=== PATIENT | male | born 1950 | race Caucasian/White ===

== ENCOUNTER 2016-08-30 02:54 | Emergency (ER) | payer BC ==
[~2016-08-30] VITALS: Ht 177.8 cm; Wt 102.0 kg
[2016-08-30 02:54] VITALS: Ht 177.8 cm; Wt 102.0 kg
[~2016-08-30 02:54] MED LIST: GLIP5TAB11 PO; PHEN-412 PO; PIOG45TA PO
--- OUTSIDE RECORDS SUMMARY | 2016-08-30 02:58 | XMS REPORT ---
Author Author Scottie Ramsey eClinicalWorks Address Unknown Phone Unavailable Care Team Providers Care Vertical Lathe Operator Name Role Phone Scottie Ramsey CP Unavailable Allergies, Adverse Reactions, Alerts Substance Reaction Event Type N.K.D.A. Info Not Available Non Drug Allergy Problems Problem Type Condition Code Onset Dates Condition Status Assessment Obesity, unspecified E66.9 Active Problem DM w/o complication type II E11.9 Active Problem Gout M10.9 Active Problem Pure hypercholesterolemia E78.0 Active Problem Nocturia R35.1 Active Problem Essential (primary) hypertension I10 Active Problem Encounter for long-term (current) use of other medications Z79.899 Active Problem Obesity, unspecified E66.9 Active Medications Medication Code System Code Instructions Start Date End Date Status Dosage Actos [facility] [address]-94 dose unknown Orally Once a day 1 tablet Phentermine HCl [facility] [address]-55 37.5 MG Orally Once a day Feb 04, 2016 1 tablet Procedures Procedure Coding System Code Date OFFICE VISITEST PT CPT-4 93378 Apr 04, 2016 Vital Signs Date/Time: Apr 04, 2016 Blood Pressure Systolic 149 mm Hg Height 70 in Weight 222.6 lbs BMI 31.94 Index Oximetry 100 % Cardiac Monitoring Heart Rate 69 /min Blood Pressure Diastolic 76 mm Hg Results No Known Results Summary Purpose eClinicalWorks Submission
--- OUTSIDE RECORDS SUMMARY | 2016-08-30 02:58 | XMS REPORT ---
Author Author Scottie Ramsey eClinicalWorks Address Unknown Phone Unavailable Care Team Providers Care Night Supervisor Name Role Phone Scottie Ramsey CP Unavailable Allergies No Known Allergies Problems Problem Type Condition ICD-9 Code Onset Dates Condition Status Problem Diabetes mellitus without mention of complication, type II or unspecified type, not stated as uncontrolled 250.00 Active Problem Gout, unspecified 274.9 Active Problem Hypercholesterolemia 272.0 Active Problem Hypertension, Unspecified 401.9 Active Problem Nocturia 788.43 Active Problem Encounter for long-term (current) use of other medications V58.69 Active Problem Obesity, unspecified 278.00 Active Medications Medication Code System Code Instructions Start Date End Date Status Dosage Actos [facility] [address]-84 45 MG Orally Once a day May 16, 2011 Active 1 tablet Crestor [facility] [address]-18 10 MG Orally Once a day May 16, 2011 Active 1 tablet GlipiZIDE [facility] [address]-69 5 MG Orally Once a day May 16, 2011 Active 1 tablet Results No Known Results Summary Purpose eClinicalWorks Submission
--- OUTSIDE RECORDS SUMMARY | 2016-08-30 02:58 | XMS REPORT ---
Author Author Scottie Ramsey [facility] eClinicalWorks Address Unknown Phone Unavailable Care Team Providers Care Certified Nuclear Medicine Technologist Name Role Phone Scottie Ramsey CP Unavailable Allergies No Known Allergies Problems Problem Type Condition Code Onset Dates Condition Status Problem DM w/o complication type II E11.9 Active Problem Gout M10.9 Active Problem Pure hypercholesterolemia E78.0 Active Problem Nocturia R35.1 Active Problem Essential (primary) hypertension I10 Active Problem Encounter for long-term (current) use of other medications Z79.899 Active Problem Obesity, unspecified E66.9 Active Medications No Known Medications Results No Known Results Summary Purpose eClinicalWorks Submission
--- OUTSIDE RECORDS SUMMARY | 2016-08-30 02:58 | XMS REPORT ---
Author Scottie Lopez eClinicalWorks Address Unknown Phone Unavailable Care Team Providers Care Equine Dentist Name Role Phone Scottie Ramsey CP Unavailable Allergies, Adverse Reactions, Alerts Substance Reaction Event Type N.K.D.A. Info Not Available Non Drug Allergy Problems Problem Type Condition ICD-9 Code Onset Dates Condition Status Assessment Hypercholesterolemia 272.0 Active Assessment Adult Wellness Exam V70.0 Active Assessment Diabetes mellitus without mention of complication, type II or unspecified type, not stated as uncontrolled 250.00 Active Problem Diabetes mellitus without mention of complication, type II or unspecified type, not stated as uncontrolled 250.00 Active Problem Gout, unspecified 274.9 Active Problem Hypercholesterolemia 272.0 Active Problem Hypertension, Unspecified 401.9 Active Problem Nocturia 788.43 Active Problem Encounter for long-term (current) use of other medications V58.69 Active Problem Obesity, unspecified 278.00 Active Assessment Obesity, unspecified 278.00 Active Assessment Gout, unspecified 274.9 Active Assessment Preop cardiovascular exam V72.81 Active Assessment Nocturia 788.43 Active Assessment Obesity 278.00 Active Assessment Hypertension, Unspecified 401.9 Active Medications Medication Code System Code Instructions Start Date End Date Status Dosage GlipiZIDE [facility] [address]-97 5 MG Orally Once a day May 16, 2011 Active 1 tablet Lipitor [facility] [address]-16 20 mg Orally Once a day Jun 12, 2014 Active 1 tablet Phentermine HCl [facility] [address]-04 37.5 MG Orally Once a day Jun 12, 2014 Active 1 tablet Crestor [facility] [address]-55 10 MG Orally Once a day May 16, 2011 Inactive 1 tablet Actos [facility] [address]-58 45 MG Orally Once a day May 16, 2011 Active 1 tablet Invokana [facility] [address]-89 300 MG Orally Once a day Jun 12, 2014 Active 1 tablet Procedures Procedure Coding System Code Date COMP PROFILE CPT-4 93062 Jun 12, 2014 LIPID PROFILE CPT-4 26723 Jun 12, 2014 CBC CPT-4 07979 Jun 12, 2014 PREV MED SEREST 40 CPT-4 68517 Jun 12, 2014 CREATININE; OTHER SOURCE CPT-4 72777 Jun 12, 2014 URINALYSIS CPT-4 51338 Jun 12, 2014 PSA,TOTAL CPT-4 71464 Jun 12, 2014 MICROALBUMIN URINE CPT-4 47574 Jun 12, 2014 HgB A1C CPT-4 69816 Jun 12, 2014 Vital Signs Date/Time: Jun 12, 2014 Blood Pressure Systolic 151 mm Hg Height 70 in Weight 314.3 lbs BMI 45.09 Index Blood Pressure Diastolic 78 mm Hg Results No Known Results Summary Purpose eClinicalWorks Submission
--- OUTSIDE RECORDS SUMMARY | 2016-08-30 02:58 | XMS REPORT ---
Author Author Scottie Ramsey [facility] eClinicalWorks Address Unknown Phone Unavailable Care Team Providers Care Industrial Spraypainter Name Role Phone Scottie Ramsey CP Unavailable [...] Start Date End Date Status Dosage Actos [facility] [address]-03 45 MG Orally Once a day May 16, 2011 1 tablet Results No Known Results Summary Purpose eClinicalWorks Submission
--- OUTSIDE RECORDS SUMMARY | 2016-08-30 02:58 | XMS REPORT ---
Author Author Scottie Ramsey [facility] eClinicalWorks Address Unknown Phone Unavailable Care Team Providers Care Kitchen Chef Name Role Phone Scottie Ramsey CP Unavailable [...] Start Date End Date Status Dosage Actos [facility] [address]-28 45 MG Orally Once a day May 16, 2011 1 tablet GlipiZIDE [facility] [address]-28 5 MG Orally Once a day May 16, 2011 1 tablet Results No Known Results Summary Purpose eClinicalWorks Submission
--- OUTSIDE RECORDS SUMMARY | 2016-08-30 02:58 | XMS REPORT | Continuity of Care Document ---
Author Author [facility] Address Unknown Phone Unavailable Care Team Providers Care Correction Officer Supervisor Name Role Phone Jeremy Ramsey Primary Care Physician [phone] Insurance Providers Payer Name Policy Number Subscriber Name Relationship [facility] [id number] Bo Faith 20 Self / Same As Patient Advance Directives Directive Response Recorded Date/Time Advanced Directives No 10/28/15 6:56am Problems Active Problems Medical Problem Onset Date Status Cataract Unknown Acute Medications Current Home Medications Medication Dose Units Route Directions Days/Qty Instructions Start Date Pioglitazone Hcl 15 Mg 15 Mg ORAL Daily 10/27/15 Glipizide (Glucotrol) 5 Mg 5 Mg ORAL Twice Daily After Meals Social History Social History Problem Response Recorded Date/Time Onset Date Status Occupation or Former Occupation [employer] 10/28/2015 7:04am Query Response Start Date Stop Date Smoking Status Never smoker Hospital Discharge Instructions No hospital discharge instructions. Plan of Care Discharge Date 10/28/15 9:55am Prescriptions See Medication Section Functional Status No functional status results. Allergies, Adverse Reactions, Alerts No known allergies. Immunizations No immunization records. Vital Signs Acute Vital Signs Vital Response Date/Time Temperature (Fahrenheit) 97.2 10/28/2015 9:22am Pulse 68 bpm 10/28/2015 9:22am Respirations 18 10/28/2015 9:22am Height 5 ft 10 in Weight 283 lb Body Mass Index 40.0 kg/m^2 Results No known relevant diagnostic tests, laboratory data and/or discharge summary. Procedures No known history of procedures. Encounters Encounter Location Arrival/Admit Date Discharge/Depart Date Attending Provider Departed [facility] 10/28/15 7:02am 10/28/15 9: 55am ARUNA FIGUEROA MD Recent Diagnosis Cataract
--- OUTSIDE RECORDS SUMMARY | 2016-08-30 02:58 | XMS REPORT ---
Author Author Scottie Ramsey eClinicalWorks Address Unknown Phone Unavailable Care Team Providers Care Golf Cart Attendant Name Role Phone Scottie Ramsey CP Unavailable [...] Instructions Start Date End Date Status Dosage Phentermine HCl [facility] [address]-60 37.5 MG Orally Once a day Feb 04, 2016 [address] [facility] [address]-42 dose unknown Orally Once a day 1 tablet Procedures Procedure Coding System Code Date OFFICE VISITEST PT CPT-4 13067 Mar 02, 2016 Vital Signs Date/Time: Mar 02, 2016 Blood Pressure Systolic 138 mm Hg Height 70 in Weight 228.2 lbs BMI 32.74 Index Oximetry 100 % Cardiac Monitoring Heart Rate 67 /min Blood Pressure Diastolic 69 mm Hg Results No Known Results Summary Purpose eClinicalWorks Submission
--- OUTSIDE RECORDS SUMMARY | 2016-08-30 02:58 | XMS REPORT ---
Author Author Scottie Ramsey [facility] eClinicalWorks Address Unknown Phone Unavailable Care Team Providers Care Parts Counter Clerk Name Role Phone Scottie Ramsey CP Unavailable [...] Start Date End Date Status Dosage GlipiZIDE [facility] [address]-11 5 MG Orally Once a day May 16, 2011 1 tablet Results No Known Results Summary Purpose eClinicalWorks Submission
--- OUTSIDE RECORDS SUMMARY | 2016-08-30 02:58 | XMS REPORT | Continuity of Care Document ---
Author Author [facility] Address Unknown Phone Unavailable Allergies Active Description Code Type Severity Reaction Onset Reported/Identified Relationship to Patient Clinical Status Yes No Known Drug Allergies [id number] Drug Allergy Unknown N/ A 10/27/2015 Medications Problems Date Dx Coded Attending Type Code Diagnosis Diagnosed By 12/14/2011 Ot V43.65 KNEE JOINT REPLACEMENT STATUS 12/14/2011 Ot V54.81 AFTERCARE FOLLOWING JOINT REPLACEMENT 12/14/2011 Ot V57.1 PHYSICAL THERAPY NEC 10/28/2015 HENRY KOEHLER, ARUNA V Ot E11.9 TYPE 2 DIABETES MELLITUS WITHOUT COMPLIC 10/28/2015 HENRY KOEHLER, ARUNA V Ot E78.5 HYPERLIPIDEMIA, UNSPECIFIED 10/28/2015 HENRY KOEHLER, ARUNA V Ot H26.9 UNSPECIFIED CATARACT 10/28/2015 HENRY KOEHLER, ARUNA V Ot H53.8 OTHER VISUAL DISTURBANCES 11/03/2015 HENRY KOEHLER, ARUNA V Ot E11.9 TYPE 2 DIABETES MELLITUS WITHOUT COMPLIC 11/03/2015 HENRY KOEHLER, ARUNA V Ot E78.5 HYPERLIPIDEMIA, UNSPECIFIED 11/03/2015 HENRY KOEHLER, ARUNA V Ot H26.9 UNSPECIFIED CATARACT 11/03/2015 HENRY KOEHLER, ARUNA V Ot H53.8 OTHER VISUAL DISTURBANCES Procedures Results Encounters ACCT No. Visit Date/Time Discharge Status Pt. Type Provider Facility Loc./Unit Complaint [id number] 10/28/2015 07:02:00 2015 09:55:00 DIS Outpatient HENRY KOEHLER, [facility] [id number] 10/28/2015 08:15:00 2015 08:15:00 CAN Preadmit HENRY KOEHLER, [facility] [id number] 11/08/2011 13:45:00 Document Registration
--- OUTSIDE RECORDS SUMMARY | 2016-08-30 02:58 | XMS REPORT ---
Author Author Scottie Ramsey eClinicalWorks Address Unknown Phone Unavailable Care Team Providers Care Nsh Teacher Name Role Phone Scottie Ramsey CP Unavailable [...] Start Date End Date Status Dosage GlipiZIDE [facility] [address]-36 5 MG Orally Once a day May 16, 2011 1 tablet Results No Known Results Summary Purpose eClinicalWorks Submission
--- OUTSIDE RECORDS SUMMARY | 2016-08-30 02:59 | XMS REPORT ---
Author Author Scottie Ramsey eClinicalWorks Address Unknown Phone Unavailable Care Team Providers Care Water Resources Program Director Name Role Phone Scottie Ramsey CP Unavailable [...] Date End Date Status Dosage Phentermine HCl [facility] [address]-84 37.5 MG Orally Once a day Feb 04, 2016 1 tablet Procedures Procedure Coding System Code Date OFFICE VISITEST PT CPT-4 29356 Feb 04, 2016 Results No Known Results Summary Purpose eClinicalWorks Submission
--- OUTSIDE RECORDS SUMMARY | 2016-08-30 02:59 | XMS REPORT ---
Author Author Scottie Ramsey [facility] eClinicalWorks Address Unknown Phone Unavailable Care Team Providers Care Oil Refinery Process Technician Name Role Phone Scottie Ramsey CP Unavailable [...] Active Problem Obesity, unspecified 278.00 Active Medications No Known Medications Results No Known Results Summary Purpose [facility]
--- OUTSIDE RECORDS SUMMARY | 2016-08-30 02:59 | XMS REPORT ---
Author Author Scottie Ramsey eClinicalWorks Address Unknown Phone Unavailable Care Team Providers Care Financial Services Officer Name Role Phone Scottie Ramsey CP Unavailable Allergies, Adverse Reactions, Alerts Substance Reaction Event Type N.K.D.A. Info Not Available Non Drug Allergy Problems Problem Type Condition Code Onset Dates Condition Status Assessment Obesity E66.9 Active Problem DM w/o complication type II E11.9 Active Problem Gout M10.9 Active Problem Pure hypercholesterolemia E78.0 Active Problem Nocturia R35.1 Active Problem Essential (primary) hypertension I10 Active Problem Encounter for long-term (current) use of other medications Z79.899 Active Problem Obesity, unspecified E66.9 Active Medications Medication Code System Code Instructions Start Date End Date Status Dosage Accu-Chek FastClix Lancets NDC 0 USE Type 2 uncontrolled on oral meds 250.02 4 TIMES A DAY 2 DAYS A WEEK Jul 13, 2014 test blood sugar Accu-Chek SmartView [facility] [address]-49 USE Type 2 uncontrolled on oral meds 250.02 4 TIMES A DAY 2 DAYS A WEEK October 12, 2014 test blood sugar Actos [facility] 24118941746 45 MG TAKE 1 TABLET BY MOUTH ONCE DAILY Phentermine HCl [facility] [address]-86 37.5 MG Orally Once a day September 20, [address] [facility] 48199074253 5 MG TAKE 1 TABLET BY MOUTH ONCE A DAY Procedures Procedure Coding System Code Date OFFICE VISITEST PT CPT-4 00616 December 01, 2015 Vital Signs Date/Time: December 01, 2015 Blood Pressure Systolic 124 mm Hg Height 70 in Weight 266.8 lbs BMI 38.28 Index Blood Pressure Diastolic 72 mm Hg Results No Known Results Summary Purpose eClinicalWorks Submission
--- OUTSIDE RECORDS SUMMARY | 2016-08-30 02:59 | XMS REPORT | Summary of Care ---
Author Author Randell Zamora Organization Unknown Address [address], [place] [id number] Phone Unavailable Care Team Providers Care Soil Field Technician Name Role Phone Unavailable Unavailable Functional Status Functional Status Health Issues* Name Dates Details Functional status health issues are not documented Status: Cognitive Status Health Issues* Name Dates Details Cognitive status health issues are not documented Status: Problems Name Dates Details Orthopedic aftercare for joint replacement (V54.81, Z47.1) Status: Active S/P knee replacement (V43.65, Z96.659) Status: Active Medications Name Dates Details Medication not documented Allergies and Adverse Reactions Name Dates Details No Known Drug Allergies Status: Active Procedures Procedure Dates Details History of Reported Hx Of Knee Replacement - Right Procedures not documented Immunization Name Dates Details Immunizations not documented Social History Smoking Status* Unknown if ever smoked Vital Signs Date Test Result Details No Known Vitals to report Results Date Description Value Details Results not documented Plan of Care Planned Observations* Name Dates Details Planned Goals not documented Goal Planned Encounters* Appointment; Provider: Darius Leiva On 25-Oct-2011 10:00 Instructions * Instructions not documented Encounters Appointment; Darius Leiva Encounter Diagnosis: Problem not documented On 20-Jan-2014 09:30 Appointment; Darius Leiva Encounter Diagnosis: Problem not documented On 21-Jan-2013 09:30
--- OUTSIDE RECORDS SUMMARY | 2016-08-30 02:59 | XMS REPORT ---
Author Author Scottie Ramsye [facility] eClinicalWorks Address Unknown Phone Unavailable Care Team Providers Care Wastewater Design Engineer Name Role Phone Scottie Ramsey CP Unavailable [...] Medications Results No Known Results Summary Purpose [facility] Submission
--- OUTSIDE RECORDS SUMMARY | 2016-08-30 02:59 | XMS REPORT ---
Author Author Scottie Ramsey eClinicalWorks Address Unknown Phone Unavailable Care Team Providers Care Solar Crew Member Name Role Phone Scottie Ramsey CP Unavailable [...] Start Date End Date Status Dosage Actos [facility] [address]-25 45 MG Orally Once a day May 16, 2011 1 tablet GlipiZIDE [facility] [address]-15 5 MG Orally Once a day May 16, 2011 1 tablet Results No Known Results Summary Purpose eClinicalWorks Submission
--- OUTSIDE RECORDS SUMMARY | 2016-08-30 02:59 | XMS REPORT ---
Author Author Scottie Ramsey eClinicalWorks Address Unknown Phone Unavailable Care Team Providers Care Laundry Attendant Name Role Phone Scottie Ramsey CP Unavailable Allergies, Adverse Reactions, Alerts Substance Reaction Event Type N.K.D.A. Info Not Available Non Drug Allergy Problems Problem Type Condition Code Onset Dates Condition Status Assessment Obesity, unspecified E66.9 Active Assessment DM w/o complication type II E11.9 Active Problem DM w/o complication type II E11.9 Active Problem Gout M10.9 Active Problem Pure hypercholesterolemia E78.0 Active Problem Nocturia R35.1 Active Problem Essential (primary) hypertension I10 Active Problem Encounter for long-term (current) use of other medications Z79.899 Active Problem Obesity, unspecified E66.9 Active Medications Medication Code System Code Instructions Start Date End Date Status Dosage Accu-Chek SmartView [facility] 2[facility] [address]-79 USE Type 2 uncontrolled on oral meds 250.02 4 TIMES A DAY 2 DAYS A WEEK October 12, 2014 test blood sugar Actos [facility][NOTE 2] 43053106011 45 MG TAKE 1 TABLET BY MOUTH ONCE DAILY Accu-Chek FastClix Lancets NDC 0 USE Type 2 uncontrolled on oral meds 250.02 4 TIMES A DAY 2 DAYS A WEEK Jul 13, 2014 test blood sugar Phentermine HCl [facility][NOTE 2] [address]-37 37.5 MG Orally Once a day September 20, 2015 1 tablet Procedures Procedure Coding System Code Date OFFICE VISITEST PT CPT-4 36925 Jan 04, 2016 Vital Signs Date/Time: Jan 04, 2016 Blood Pressure Systolic 118 mm Hg Height 70 in Weight 252.7 lbs BMI 36.25 Index Blood Pressure Diastolic 74 mm Hg Results No Known Results Summary Purpose eClinicalWorks Submission
--- OUTSIDE RECORDS SUMMARY | 2016-08-30 02:59 | XMS REPORT ---
Author Author Darius Leiva Organization Unknown Address [address], [place] [id number] Phone Care Team Providers Care Career Information Specialist Name Role Phone Cali Mabel PP Unavailable Reason for Referral No Reason for Referral was given. Chief Complaint [facility] Text Box CC: [facility] ortho cc: Reason for Visit: Right knee surgery follow up. Date of Surgery: 10/25/2011 r tka History of Present Illness [facility] Ortho HPI: He describes the pain as dull. Patient denies numbness. He rates the severity of the pain at a 1 on a pain scale of 1-10. The patient states that this injury is not accident related. The patient states that this injury was not work related. [facility] Text Box HPI: Problems * Normal Routine History And Physical Adult (V70.0); (Active) Medication * No Active Medications Allergies and Adverse Reactions * No Known Drug Allergies (Active) Past Medical History * No Significant Medical History Procedures Procedure Procedure Date Date Completed Status Reported Hx Of Knee Replacement - Right - - Active Treatment Plan * ORTHO KNEE RIGHT 07/25/2011 Routine * ORTHO KNEE RIGHT (3 VIEWS ONLY) 11/09/2011 Routine * ORTHO KNEE RIGHT (3 VIEWS ONLY) 01/23/2012 Routine * ORTHO KNEE RIGHT (3 VIEWS ONLY) 01/21/2013 Routine Advance Directives * No Advance Directives available. Encounters * Appointment 01/21/2013 * YEARLY , Provider: Cali Mccoy, Status: Lai , Time: 9:30 AM 2013
--- OUTSIDE RECORDS SUMMARY | 2016-08-30 02:59 | XMS REPORT ---
Author Scottie Lopez [facility] eClinicalWorks Address Unknown Phone Unavailable Care Team Providers Care Heater Mechanic Name Role Phone Scottie Ramsey Unavailable Allergies, Adverse Reactions, Alerts Substance Reaction Event Type N.K.D.A. Info Not Available Non Drug Allergy Problems Problem Type Condition Code Onset Dates Condition Status Assessment DM w/o complication type II E11.9 Active Assessment Encounter for general adult medical examination without abnormal findings Z00.00 Active Assessment Pure hypercholesterolemia E78.0 Active Problem DM w/o complication type II E11.9 Active Problem Gout M10.9 Active Problem Pure hypercholesterolemia E78.0 Active Problem Nocturia R35.1 Active Problem Essential (primary) hypertension I10 Active Problem Encounter for long-term (current) use of other medications Z79.899 Active Problem Obesity, unspecified E66.9 Active Assessment Essential (primary) hypertension I10 Active Assessment Obesity, unspecified E66.9 Active Assessment Nocturia R35.1 Active Assessment Gout M10.9 Active Medications Medication Code System Code Instructions Start Date End Date Status Dosage Accu-Chek SmartView [facility] [address]-65 USE Type 2 uncontrolled on oral meds 250.02 4 TIMES A DAY 2 DAYS A WEEK October 12, 2014 test blood sugar Actos [facility] [address]-87 45 MG Orally Once a day May 16, 2011 1 tablet Phentermine HCl [facility] [address]-53 37.5 MG Orally Once a day September 20, 2015 1 tablet Accu-Chek FastClix Lancets NDC 0 USE Type 2 uncontrolled on oral meds 250.02 4 TIMES A DAY 2 DAYS A WEEK Jul 13, 2014 test blood sugar GlipiZIDE [facility] [address]-58 5 MG Orally Once a day May 16, 2011 1 tablet Procedures Procedure Coding System Code Date COMP PROFILE CPT-4 97476 September 20, 2015 LIPID PROFILE CPT-4 14776 September 20, 2015 CBC CPT-4 42046 September 20, 2015 CREATININE; OTHER SOURCE CPT-4 23198 September 20, 2015 MICROALBUMIN URINE CPT-4 77982 September 20, 2015 URINALYSIS CPT-4 73772 September 20, 2015 PSA,TOTAL CPT-4 85967 September 20, 2015 HgB A1C CPT-4 24038 September 20, 2015 PREV MED SEREST 40 CPT-4 80151 September 20, 2015 Vital Signs Date/Time: September 20, 2015 Blood Pressure Systolic 146 mm Hg Height 70 in Weight 305.8 lbs BMI 43.87 Index Oximetry 96 % Cardiac Monitoring Heart Rate 70 /min Blood Pressure Diastolic 77 mm Hg Results No Known Results Summary Purpose eClinicalWorks Submission
--- OUTSIDE RECORDS SUMMARY | 2016-08-30 02:59 | XMS REPORT | Continuity of Care Document ---
Author Author [facility] Organization [facility] Address Unknown Phone Unavailable Support Name Relationship Address Phone ANGIE LIM Caregiver [address] [facility] [address] [place] [address] Unavailable KARTIK RAY FACS, MD Caregiver [address] [place] [address] [place] [address] Unavailable TRISTAN ANGELE Next Of Kin Unknown [phone] Insurance Providers Guarantor Bo Faith Address [address] [place] [address] Email DENIED PT PORTAL Payer [facility] Policy Number [id number] Subscriber's Name Bo Faith Relationship 18 Self Group Number [id number] Advance Directives Directive Response Recorded Date/Time Dr Flores Resuscitation Status Full Code 11/10/15 1:40pm Resuscitation Documents on File No 11/12/15 6:34am DPOA for Healthcare Only No 11/12/15 6:34am Problems No problem information available. Medications Current Home Medications Medication Dose Units Route Directions Days Qty Instructions Start Date Glipizide 5 Mg Tablet 1 Tab Oral Daily 11/10/15 Phentermine Hcl 37.5 Mg Capsule 1 Cap Oral Every Morning 30 Capsule 11/11/15 Pioglitazone Hcl (Actos) 45 Mg Tablet 1 Tab Oral Daily 11/10/15 Social History Social History Problem Response Recorded Date/Time Onset Date Status Chewing Tobacco Status No 11/12/2015 6:38am Not Applicable Not Applicable Hx Substance Use No 11/12/2015 6:38am Not Applicable Not Applicable Hx Alcohol Use No 11/12/2015 6:38am Not Applicable Not Applicable Query Response Start Date Stop Date Smoking Status Never smoker Hospital Discharge Instructions No hospital discharge instructions. Plan of Care Discharge Date 11/12/15 9:20am Prescriptions See Medication Section Functional Status Query Response Date Recorded Ability to complete ADL's impeded by No change November 12, 2015 6:34am Allergies, Adverse Reactions, Alerts No known allergies. Immunizations Query Response on File Recorded Date/Time Hx Influenza Vaccination No 11/12/15 6:38am Hx Pneumococcal Vaccination No 11/12/15 6:38am Hx Influenza Vaccination No 11/12/15 6:38am Vital Signs Acute Vital Signs Vital Response Date/Time Temperature (Fahrenheit) 97.1 deg F (96.8 - 99.1) 11/12/2015 8:30am Temperature (Calculated Celsius) 36.14630 degrees C (36.0 - 37.3) 11/12/2015 8:30am Temperature Source Temporal 11/12/2015 8:30am Pulse Rate (adult) 56 bpm (60 - 100) 11/12/2015 9:15am Respiratory Rate 18 breaths/min (10 - 20) 11/12/2015 9:15am O2 Sat by Pulse Oximetry 98 % (90 - 100) 11/12/2015 9:15am Oxygen Delivery Method Room Air 11/12/2015 9:15am Blood Pressure 155/69 mm Hg 11/12/2015 9:15am Blood Pressure Source Automatic Cuff 11/12/2015 9:15am Height (Feet) 5 feet 11/12/2015 6:24am Height (Inches) 8.50 inches 11/12/2015 6:24am Weight (Kilograms) 124.300 kg 11/12/2015 6:24am Body Mass Index (BMI) 41.1 11/12/2015 6:24am Results Laboratory Results Test Name Result Units Flags Reference Collection Date/Time Result Date/ Time Comments Glucometer 106 mg/dL 75-110 11/12/2015 6:32am 11/12/2015 6:51am Procedures Procedure Status Date Provider(s) Colonoscopy with polypectomy and biopsy Completed 11/12/15 KARTIK RAY MD, FACS, CWS Encounters Encounter Location Arrival/Admit Date Discharge/Depart Date Attending Provider Departed [facility] 11/12/15 6:12am 11/12/15 9: 20am KARTIK RAY FACS, MD
[2016-08-30] MEDS ORDERED: NORMAL SALINE 1,000 ML IV ONE (03:03)
--- NOTE | 2016-08-30 03:05 | NUR ---
PROVIDER DR. RESENDIZ IN ROOM WITH PT.
[2016-08-30] MEDS ORDERED: [UNRECOGNIZED DRUG - REMARK] (03:08)
--- OUTSIDE RECORDS SUMMARY | 2016-08-30 03:13 | XMS REPORT | Continuity of Care Document ---
Author Author [facility] Address Unknown Phone Unavailable Allergies Active Description Code Type Severity Reaction Onset Reported/Identified Relationship to Patient Clinical Status Yes No Known Drug Allergies [id number] Drug Allergy Unknown N/ A 10/27/2015 Medications [...] Status Pt. Type Provider Facility Loc./Unit Complaint [id number] 10/28/2015 07:02:00 2015 09:55:00 DIS Outpatient HENRY KOEHLER, [facility] [id number] 10/28/2015 08:15:00 2015 08:15:00 CAN Preadmit HENRY KOEHLER, [facility] [id number] 11/08/2011 13:45:00 Document Registration
[2016-08-30] MEDS ORDERED: ONDANSETRON 4mg/2ml INJECTION IV ONE (03:15)
[2016-08-30] MEDS ORDERED: KETOROLAC 30mg/ml INJECTION IV ONE (03:15)
--- NOTE | 2016-08-30 03:15 | ERPDOC ---
Departure Disposition Decision Date: Aug 30, 2016 Disposition Decision Time: 04:10 Disposition: 01 DISCHARGED HOME, SELF-CARE Impression Impression Impression: Primary Impression: Viral gastroenteritis Severity: Moderate Condition: Improved Seen By: Physician only Referrals: ANGIE LIM (Family) 3 Days Patient Instructions: Gastroenteritis (ED) Problems/Meds/Labs Reviewed?: Yes Medications reviewed and manag: Yes Additional Instructions: You have a stomach bug (gastroenteritis). Take naproxen and tylenol as needed for pain. Take the zofran for nausea. Drink lots of fluids. Follow up with your doctor in the next few days, especially if your symptoms don't improve. Expect diarrhea to follow shortly. Follow up care ordered?: Yes Mental Status: Alert, Oriented Scripts Ondansetron (Zofran Odt) 4 Mg Tab.rapdis 4 MG PO QID Y for NAUSEA &/OR VOMITING, #20 TAB 0 Refills Prov: SEPTEMBERARMIDA DO 08/30/16 HPI - Abdominal Pain General Chief Complaint: Abdominal Pain Stated Complaint: ABD PAIN Time Seen by Provider: 03:03 Source: patient History/Exam Limitations: no limitations HPI - Abdominal Pain Initial Comments 66yo man presents to the ER today with epigastric abd pain. Pain started at 2200 ; has been burning with periods of worsening. Has never had similar sx previously. Took some rolaids and diet 7up, forced himself to vomit, and had a BM all without relief of sx, so he decided to present for evaluation. Occurred At: work Onset: Rapid Duration: 4-6 hrs Pain Scale: Now & Worst: 6/10 Quality: burning Location: epigastric Radiation: RUQ, LUQ 1 - Pain Activities at Onset: none Associated Symptoms: nausea/vomiting Hx of Similar Symptoms: No Allergies: Coded Allergies: No Known Allergies (Unverified , 08/30/16) Past History Past Medical History Metabolic: diabetes, hypercholesterolemia Surgical History General: tonsils Joint: knee Family History Family PMH: FOUND: cancer, diabetes, other Vaccines Hx Influenza Vaccination: No Hx Pneumococcal Vaccination: No Social History Does patient use chewing tobac: No Review of Systems GI Upper Abdomen: nausea, pain, see HPI All other Systems All Other Systems: Reviewed and Negative Physical Exam General General Nourishment: well nourished, well developed, appears stated age, no acute distress, adult, obese General Body Habitus: well groomed Vitals and Pain Weight: Kilograms: Height (feet): 5 Height (inches): 8.50 Triage Pain Scale: RN VS reviewed by Provider: Yes Normal Exams: Head: Normocephalic w/o trauma Eyes: Pupils are PERRLA w/ EOMI, No scleral icterus, irritation ENMT: No facial trauma, nasal exudates, pharyngeal erythema Neck: Full range of motion, without adenopathy, JVD Chest/Resp: Clear all bukcner, with good airflow, and symmetry bilaterally CV: Regular rate and rhythm, without murmur or gallop, Pulses 2+ all extremities Lymphatic: No lymphadenopathy Musculoskeletal: No tenderness, or deformity noted Integumentary: No rashes, hives, or bruising noted Neurologic: Patient is alert, and oriented Psychiatric: Patient exhibits, appropriate attention Abdomen (brief) Abdominal Brief: FOUND: bowel normo active x4, soft, tender (TTP from RUQ to LUQ. Worst in epigastrum. Neg Cai's sign.), NOT FOUND: distended, hepatosplenomegaly, pulsatile mass Differential Diagnoses Considering: Biliary Colic, Bowel Obstruction, Cholecystitis, Constipation, DKA , Gastroenteritis, GERD, IBS, Ileus, Pancreatitis, Pneumonia, UTI, Volvulus Progress Results/Orders Orders Lab Results Medications Current ED Medications Sodium Chloride (Normal Saline IV) 1,000 ml @ 0 mls/hr Q0M ONCE IV Last administered on 08/30/16 03:39; Start 08/30/16 at 03:03; Stop 08/30/16 at 03:04; Status DC Ondansetron HCl (Zofran) 4 mg O ONCE IV Last administered on 08/30/16 03:39; Start 08/30/16 at 03:15; Stop 08/30/16 at 03:16; Status DC Ketorolac Tromethamine (Toradol) 30 mg O ONCE IV Last administered on 03:40; Start 08/30/16 at 03:15; Stop 08/30/16 at 03:16; Status DC Ondansetron HCl (ZOFRAN ODT (PrePack)) 1 pack O ONCE SENT HOME Last administered on 08/30/16 04:45; Start 08/30/16 at 04:15; Stop 08/30/16 at 04:16; Status DC Progress Progress Pt with s/s c/w the gastroenteritis that has been working its way through the local community. Discussed dx, prognosis, tx, and RTC precautions. Pt voices understanding. EKG EKG : Rate: <60 Rhythm: sinus [place]: normal QRS: normal Intervals: normal ST/T: normal Interpreted by: signing physician Xray Xray : Xray: KUB Upright Interpretation: Normal, Interpreted by ARMIDA Lombardi DO Aug 30, 2016 03:15 03:03 Normal Saline (Normal PHA 08/30/16 Complete Saline Iv) 03:03 Ondansetron Inj PHA 08/30/16 Complete (Zofran) 03:15 Ketorolac (Toradol) PHA 08/30/16 Complete 03:15 Kub W/Upright RAD 08/30/16 Taken 03:11 Lab Results Laboratory Tests Test 08/30/16 03:36 White Blood Count 14.3T/MM3 Red Blood Count 4.56M/MM3 Hemoglobin 14.4GM/DL Hematocrit 42.0% Mean Corpuscular Volume 92.1UM3 Mean Corpuscular Hemoglobin 31.6UUG Mean Corpuscular Hemoglobin Concent 34.3GM/DL RDW Standard Deviation 39.6FL Platelet Count 320T/MM3 Mean Platelet Volume 10.2UM3 Immature Granulocyte % (Auto) 0.6% Neutrophils (%) (Auto) 75.3% Lymphocytes (%) (Auto) 16.3% Monocytes (%) (Auto) 5.7% Eosinophils (%) (Auto) 1.5% Basophils (%) (Auto) 0.6% Absolute Immature Granulocyte (auto 0.08T/MM3 Absolute Neutrophils (auto) 10.8T/MM3 Absolute Lymphocytes (auto) 2.3T/MM3 Absolute Monocytes (auto) 0.8T/MM3 Absolute Eosinophils (auto) 0.2T/MM3 Absolute Basophils (auto) 0.1T/MM3 Urine Collection Type Cleancatch-midstream Urine Color Yellow Urine Turbidity Clear Urine pH 7.5 Urine Specific Force 1.015 Urine Protein Negative Urine Glucose (UA) Negative Urine Ketones Negative Urine Blood Negative Urine Nitrite Negative Urine Bilirubin Negative Urine Urobilinogen 1.0EU/DL Urine Leukocyte Esterase Negative Urinalysis Comment Microscopic not ind. Turbidity < 20 Sodium Level 146MEQ/L Potassium Level 4.1MEQ/L Chloride Level 104MEQ/L Carbon Dioxide Level 26MEQ/L Anion Gap 16MEQ/L Blood Urea Nitrogen 23.0MG/DL Creatinine 0.8MG/DL Glomerular Filtration Rate Calc 97 BUN/Creatinine Ratio 29RATIO Glucose Level 144MG/DL Calculated Osmolality 288MOSM/KG Calcium Level 9.1MG/DL Icterus Index < 2 Lipase 108U/L Chemistry Specimen Hemolysis < 15 Medications Current ED Medications Sodium Chloride (Normal Saline IV) 1,000 ml @ 0 mls/hr Q0M ONCE IV Last administered on 08/30/16 03:39; Start 08/30/16 at 03:03; Stop 08/30/16 at 03:04; Status DC Ondansetron HCl (Zofran) 4 mg O ONCE IV Last administered on 08/30/16 03:39; Start 08/30/16 at 03:15; Stop 08/30/16 at 03:16; Status DC Ketorolac Tromethamine (Toradol) 30 mg O ONCE IV Last administered on 03:40; Start 08/30/16 at 03:15; Stop 08/30/16 at 03:16; Status DC Progress Progress Pt with s/s c/w the gastroenteritis that has been working its way through the local community. Discussed dx, prognosis, tx, and RTC precautions. Pt voices understanding. EKG EKG : Rate: <60 Rhythm: sinus [place]: normal QRS: normal Intervals: normal ST/T: normal Interpreted by: signing physician Xray Xray : Xray: KUB Upright Interpretation: Normal, Interpreted by ARMIDA Lombardi DO Aug 30, 2016 03:15
[2016-08-30 03:45] LABS: BLOOD, URINE NEGATIVE (NEGATIVE); COLOR,URINE YELLOW (YELLOW); LEUKOCYTE ESTERASE ,URINE NEGATIVE (NEGATIVE); NITRITE,URINE NEGATIVE (NEGATIVE)
--- NOTE | 2016-08-30 03:45 | NUR ---
XRAY PT TO XRAY PER COT.
[2016-08-30 03:50] LABS: BASOPHILS # (AUTO) 0.1 T/MM3 (0-0.2); BASOPHILS % (AUTO) 0.6 % (0-2); EOSINOPHILS # (AUTO) 0.2 T/MM3 (0-0.5); EOSINOPHILS % (AUTO) 1.5 % (0-4); HGB - HEMOGLOBIN 14.4 GM/DL (13.5-17.5); IMMATURE GRANULOCYTE # (AUTO) 0.08 T/MM3 (0.00-0.03); IMMATURE GRANULOCYTE % (AUTO) 0.6 % (0.0-0.5); LYMPHOCYTES # (AUTO) 2.3 T/MM3 (1-4.8); LYMPHOCYTES % (AUTO) 16.3 % (23-45); MEAN CORPUSCULAR HGB 31.6 UUG (26-34); MEAN CORPUSCULAR HGB CONC(MCHC 34.3 GM/DL (31-37); MEAN CORPUSCULAR VOLUME 92.1 UM3 (80-100); MEAN PLATELET VOLUME 10.2 UM3 (9.4-12.4); MONOCYTES # (AUTO) 0.8 T/MM3 (0-0.8); MONOCYTES % (AUTO) 5.7 % (0-9.0); NEUTROPHILS #(AUTO)-ABSOLUTE 10.8 T/MM3 (1.8-7.7); NEUTROPHILS % (AUTO) 75.3 % (33-66); RED BLOOD COUNT 4.56 M/MM3 (4.50-5.90); WBC - WHITE BLOOD COUNT 14.3 T/MM3 (4.5-11.0)
[2016-08-30 03:55] LABS: ANION GAP 16 MEQ/L (5-15); BUN/CREATININE RATIO 29 RATIO (6-26); CALCIUM 9.1 MG/DL (8.4-10.2); CHLORIDE 104 MEQ/L (98-107); CO2 - CARBON DIOXIDE 26 MEQ/L (22-30); CREATININE 0.8 MG/DL (0.8-1.5); GLOMERULAR FILTRATION RATE 97; GLUCOSE 144 MG/DL (75-110); LIPASE 108 U/L (23-300); POTASSIUM 4.1 MEQ/L (3.6-5); SODIUM 146 MEQ/L (134-144)
--- NOTE | 2016-08-30 03:58 | NUR ---
XRAY PT RETURNED FROM XRAY
--- NOTE | 2016-08-30 04:00 | NUR ---
PT STATUS PT DENIES ANY FURTHER NAUSEA, REPORTS BLOATING/PAIN HAS BEEN REDUCED TO A 2/10, PT DENIES ANY OTHER COMPLAINTS. PT SHOWS NO SIGNS OF DISTRESS, CALL LIGHT IN REACH.
--- NOTE | 2016-08-30 04:06 | NUR ---
PROVIDER DR. RESENDIZ IN ROOM WITH PT.
[2016-08-30] MEDS ORDERED: ONDA4TAB7 PO (04:11)
[2016-08-30] MEDS ORDERED: ONDANSETRON ODT 4mg #3 (PrePack) SENT HOME ONE (04:15)
[2016-08-30 04:56] VITALS: BP 164/78; PULSE 58; RESP 14; TEMP 98; O2SAT 100
--- NOTE | 2016-08-30 04:56 | NUR ---
DISMISSAL PT IS RELEASED WITH DISMISSAL INSTRUCTIONS, RX AND PREPACK OF ZOFRAN. PT VERBALIZED UNDERSTANDING OF INSTRUCTIONS AND RX USE AND DENIES ANY QUESTIONS. PT IS AMBULATORY OUT OF THE ED WITHOUT DIFFICULTIES.
--- NOTE | 2016-08-30 07:59 | DI ---
Indication: ITS.REASON: abd pain PROCEDURE: KUB W/UPRIGHT: Encounter: Initial Comparison: None Findings: The visualized lung bases are clear. There is no free air on the upright view. The bowel gas pattern is nonobstructive and nonspecific. Gas is seen in nondilated small and large bowel to the level of the rectum. Moderate stool is seen throughout the colon. Impression: Nonobstructive nonspecific bowel gas pattern. .
== END 2016-08-30 04:56 | disposition home or self-care (01) ==
LOC: ED 02:54
DX: A08.4 Viral intestinal infection, unspecified (principal)
CPT/HCPCS: 36415; 74020; 80048; 81003; 83690; 85025; 93005; 96361; 96374; 96375; 99284; J1885; J2405; J7030